=== PATIENT | male | born 1970 | race Hispanic/Latino ===

== ENCOUNTER 2022-10-25 15:18 | Observation (INO) | payer OTHER, SELFPAY ==
[2022-10-25] MEDS ORDERED: Potassium Chloride 20 MEQ TAB PO SCH (19:00)
[2022-10-25] MEDS ORDERED: CEFAZOLIN 2 GM in Sodium Chloride 0.9% 100 ML IVPB SCH (20:00)
[2022-10-25] MEDS ORDERED: CEFAZOLIN 2 GM VIAL ONE (20:04)
[2022-10-25] MEDS ORDERED: Acetaminophen 500 MG TAB ONE (20:15)
[2022-10-25] MEDS ORDERED: Acetaminophen 325 MG TAB PO PRN (21:30)
[2022-10-25] MEDS ORDERED: Ondansetron PF 4 MG/2 ML Vial IVP PRN (21:30)
[2022-10-25] MEDS ORDERED: Ondansetron ODT 4 MG TAB PO PRN (21:30)
[2022-10-25] MEDS ORDERED: Fioricet 325/50/40 mg Tablet PO PRN (21:48)
[2022-10-25 21:50] VITALS: BMI 37.2
[2022-10-25] MEDS: Ketorolac Tromethamine 30 MG/ML VIAL IVP PRN (22:05)
[2022-10-25 23:12] LABS: Anion Gap 10 mmol/L (10-20); BUN (Urea Nitrogen) 10 mg/dL (8.4-25.7); Calc. Creatinine Clearance 179 mL/min (70-130); Calcium 8.7 mg/dL (7.8-10.44); Carbon Dioxide 27 mmol/L (22-29); Chloride 103 mmol/L (98-107); Estimated GFR 112; Glucose 70 mg/dL (70-105); Potassium 3.2 mmol/L (3.5-5.1); Sodium 137 mmol/L (136-145)
[2022-10-25] MEDS ORDERED: Electrolyte Replacement Protocol 1 EACH FS PRN (23:30)
[2022-10-26 06:07] VITALS: TEMP 98.6
[2022-10-26 06:42] LABS: Anion Gap 10 mmol/L (10-20); BUN (Urea Nitrogen) 14 mg/dL (8.4-25.7); Calc. Creatinine Clearance 193 mL/min (70-130); Calcium 8.9 mg/dL (7.8-10.44); Carbon Dioxide 28 mmol/L (22-29); Chloride 104 mmol/L (98-107); Estimated GFR 114; Glucose 94 mg/dL (70-105); Iron 39 ug/dL (65-175); Iron Binding Capacity, Total 431 mcg/dL (261-462); Potassium 3.7 mmol/L (3.5-5.1); Sodium 138 mmol/L (136-145)
[2022-10-26 07:48] LABS: Anisocytosis SLIGHT = 6-15 cells (100X) (0-5/hpf); Band 6 % (5-11); Eosinophils 9 % (0-10); Hemoglobin 10.2 g/dL (14.0-18.0); Lymphocytes 23 % (21-51); MDiff Complete? YES; Mean Corpuscular HGB CONC 31.4 g/dL (32.0-36.0); Mean Corpuscular Hemoglobin 22.8 pg (27.0-31.0); Mean Corpuscular Volume 72.4 fl (78.0-98.0); Mean Platelet Volume 9.6 fL (7.4-10.4); Microcytosis SLIGHT = 6-15 cells (100X) (0-5/hpf); Monocytes 5 % (0-10); Neutrophil 57 % (42-75); Platelet Count 156 10x3/uL (130-400); RBC Distribution Width 16.1 % (11.5-14.5); Red Blood Cell (RBC) Count 4.49 mill/uL (4.70-6.10); White Blood Cell (WBC) Count 4.5 10x3/uL (4.8-10.8)
[2022-10-26] MEDS ORDERED: CEFAZOLIN 2 GM in Sodium Chloride 0.9% 100 ML IVPB SCH (08:00)
[2022-10-26] MEDS: Ketorolac Tromethamine 30 MG/ML VIAL IVP PRN (08:46)
[2022-10-26] MEDS ORDERED: Pioglitazone HCl 15 MG TAB PO SCH (09:00)
[2022-10-26] MEDS ORDERED: FLU VACC QS2022-23(6MOS UP)/PF 60 MCG/0.5 ML SYRINGE IM ONE (09:00)
[2022-10-26 10:14] VITALS: BP 145/79
== END 2022-10-26 12:56 | disposition home or self-care (01) ==
LOC: ERS 15:18 → T4-B 19:25
PROVIDERS: ADMIT Internal Medicine; ATTEND Internal Medicine
DX: G89.29 Other chronic pain (principal); M25.552 Pain in left hip; M16.12 Unilateral primary osteoarthritis, left hip; D50.9 Iron deficiency anemia, unspecified; E87.6 Hypokalemia; E11.9 Type 2 diabetes mellitus without complications; I10 Essential (primary) hypertension; Z79.84 Long term (current) use of oral hypoglycemic drugs; Z79.899 Other long term (current) drug therapy; W01.0XXA Fall on same level from slipping, tripping and stumbling without subsequent striking against object, initial encounter
CPT/HCPCS: 36415; 36416; 80048; 82728; 83540; 83550; 85025; 85652; 86140; 96375; 96376; G0378; J1885; J3490

== ENCOUNTER 2023-08-27 18:19 | Emergency (ER) | payer SELFPAY ==
[~2023-08-27 18:19] MED LIST: Iopamidol-370 76% 500 ML MDV (1 ML CHARGE) ONE
[2023-08-27] MEDS ORDERED: Pantoprazole 40 MG VIAL ONE (19:23)
[2023-08-27] MEDS ORDERED: Ondansetron PF 4 MG/2 ML Vial ONE (19:23)
[2023-08-27] MEDS ORDERED: Morphine 4 MG/ML VIAL ONE (19:23)
[2023-08-27 19:30] LABS: #Basophils 0.1 thou/uL (0.0-0.2); #Eosinphils 0.2 thou/uL (0.0-0.7); #Monocytes 0.5 thou/uL (0.11-0.59); #Neutrophils 3.2 thou/uL (1.40-6.50); %Basophils 1.1 % (0.0-1.0); %Eosinophils 4.8 % (0.0-10.0); %Monocytes 10.4 % (0.0-10.0); %Neutrophils 70.5 % (42.0-75.0); Hemoglobin 10.4 g/dL (14.0-18.0); Mean Corpuscular HGB CONC 30.6 g/dL (32.0-36.0); Mean Corpuscular Hemoglobin 22.4 pg (27.0-31.0); Mean Corpuscular Volume 73.1 fl (78.0-98.0); Platelet Count 173 10x3/uL (130-400); RBC Distribution Width 27.6 % (11.5-14.5); Red Blood Cell (RBC) Count 4.65 mill/uL (4.70-6.10); White Blood Cell (WBC) Count 4.6 10x3/uL (4.8-10.8)
[2023-08-27 19:56] LABS: Troponin I Less than 0.010 ng/mL (< 0.028)
[2023-08-27 19:57] LABS: Anisocytosis MODERATE=16-30 cells HPF (0-5); CellaVision Operator ID LAB.MJL; Hypochromia SLIGHT = 6-15 cells HPF (0-5); Microcytosis SLIGHT = 6-15 cells HPF (0-5); Ovalocytes SLIGHT = 2-5 cells HPF (0-1); Platelet Adequacy Comment Platelets Normal; Poikilocytosis SLIGHT = 6-15 cells HPF (0-5); Polychromasia MODERATE = 3-4 cells HPF (0-2); Spherocytes SLIGHT = 1-5 cells HPF (None Seen)
[2023-08-27 20:14] LABS: Bacteria/HPF None Seen HPF (None Seen); Bilirubin Negative (Negative); Blood, Urine Negative (Negative); CAUTI Indications for Culture Pelvic or flank pain; Clarity Clear (Clear); Glucose, Urine (Dipstick) Normal (Negative); Ketone, Urine 20 mg/dL (Negative); Leukocyte Negative Leu/uL (Negative); Nitrite Negative (Negative); Protein, Urine (Dipstick) 30 mg/dL (Neg-Trace); RBC/HPF 0-3 HPF (0-3); Squamous Epithelial 0-3 HPF (0-3); Urobilinogen Normal mg/dL (Less than 2); pH, Urine 6.5 (5.0-9.0)
[2023-08-27 20:17] LABS: Urine Culture Reflex No No
[2023-08-27 20:31] LABS: ALT (SGPT) 13 U/L (8-55); AST (SGOT) 58 U/L (5-34); Albumin 3.1 g/dL (3.5-5.0); Alkaline Phosphatase 72 U/L (40-110); Anion Gap 11 mmol/L (10-20); BUN (Urea Nitrogen) 10 mg/dL (8.4-25.7); Bilirubin, Total 0.4 mg/dL (0.2-1.2); Calc. Creatinine Clearance 0 mL/min (70-130); Calcium 9.1 mg/dL (7.8-10.44); Carbon Dioxide 30 mmol/L (22-29); Chloride 96 mmol/L (98-107); Estimated GFR 106; Globulin 3.7 g/dL (2.4-3.5); Glucose 90 mg/dL (70-105); Lipase 43 U/L (8-78); Protein, Total 6.8 g/dL (6.0-8.3); Sodium 134 mmol/L (136-145)
[2023-08-27 20:40] LABS: Potassium 2.6 mmol/L (3.5-5.1)
[2023-08-27] MEDS ORDERED: Potassium Chloride 20 MEQ TAB ONE (20:58)
== END 2023-08-27 23:34 | disposition home or self-care (01) ==
LOC: ERS 18:19
DX: K29.00 Acute gastritis without bleeding (principal); K74.60 Unspecified cirrhosis of liver; E87.6 Hypokalemia; E11.9 Type 2 diabetes mellitus without complications; I10 Essential (primary) hypertension; Z79.84 Long term (current) use of oral hypoglycemic drugs
CPT/HCPCS: 36415; 74177; 80053; 81001; 83690; 84484; 85025; 93005; 96361; 96374; 96375; C9113; J2270; J2405; Q9967